=== PATIENT | female | born 1980 | race Caucasian/White ===

== ENCOUNTER 2016-09-01 08:13 | Emergency (ER) | payer BC, MEDICAID ==
[~2016-09-01] VITALS: Ht 154.9 cm; Wt 47.6 kg
[~2016-09-01 08:13] MED LIST: METH-171 PO; NAPR-607 PO; NOR10T PO
[2016-09-01 08:37] VITALS: BP 125/55
== END 2016-09-01 13:33 | disposition left against medical advice (07) ==
LOC: ER 08:13
DX: M54.9 Dorsalgia, unspecified (principal); Z53.21 Procedure and treatment not carried out due to patient leaving prior to being seen by health care provider

== ENCOUNTER 2019-02-27 18:39 | Emergency (ER) | payer BC, MEDICAID ==
[~2019-02-27] VITALS: Ht 154.9 cm; Wt 49.9 kg
[~2019-02-27 18:39] MED LIST changes: -METH-171 PO; +METH-532 PO; -NAPR-607 PO; +NAPR500T31 PO
[2019-02-27 19:20] VITALS: BP 130/76
[2019-02-27 19:35] LABS: Basophils # (auto) 0.1 uL; Basophils % (auto) 0.6 % (0.0-2.0); Eosinophils # (auto) 0.2 uL; Hematocrit 38.5 % (36.0-46.0); Hemoglobin 13.3 g/dL (12.2-16.2); Lymphocytes # (auto) 2.6 uL; Lymphocytes % (auto) 31.7 % (10.0-50.0); Mean Corpuscular Hemoglobin 33.3 pg (28.0-32.0); Mean Corpuscular Hgb Conc. 34.6 g/dL (32.0-36.0); Mean Corpuscular Volume 96.2 fL (80.0-100.0); Monocytes # (auto) 0.8 uL; Monocytes % (auto) 10.1 % (0.0-12.0); Neutrophils # (auto) 4.5 uL; Neutrophils % (auto) 55.6 % (37.0-80.0); Platelet Count (auto) 263 10^3/uL (140-450); Red Cell Distribution Width 12.8 % (11.8-14.3); White Blood Cell 8.1 10^3/uL (4.4-10.8)
[2019-02-27 19:39] LABS: Alanine Aminotransferase 31 U/L (13-56); Albumin 3.8 g/dL (3.4-5.0); Anion Gap 5 (5-15); Blood Urea Nitrogen 16 mg/dL (7-18); Calcium 8.3 mg/dL (8.5-10.1); Carbon Dioxide 28 mmol/L (21-32); Chloride 106 mmol/L (98-107); Glucose 53 mg/dL (74-106); Potassium 3.5 mmol/L (3.5-5.1); Sodium 139 mmol/L (136-145)
[2019-02-27 19:43] LABS: Urine WBC None Seen /hpf (0 - 5)
[2019-02-27 19:44] LABS: Alkaline Phosphatase 63 U/L (45-117); Aspartate Aminotransferase 29 U/L (15-37); Bilirubin, Total 0.3 mg/dL (0.2-1.0); GFR African American 99 mL/min; GFR Non-African American 82 mL/min
[2019-02-27 19:56] LABS: Urine Bacteria NONE SEEN /hpf (None Seen); Urine Blood Negative /uL (Negative); Urine Specific Gravity 1.005 (1.001-1.035)
[2019-02-27] MEDS ORDERED: SODIUM CHLORIDE 0.9% 1,000 ML IVB ONE (20:10)
[2019-02-27 20:21] LABS: Alcohol, Urine < 3.0 mg/dL (0-5); Amphetamine Screen, Urine NEGATIVE (NEGATIVE); Barbiturate Scree,Urine NEGATIVE (NEGATIVE); Benzodiazephine Screen, Urine NEGATIVE (NEGATIVE); Cannabinoid Screen, Urine POSITIVE (NEGATIVE); Cocaine Screen, Urine NEGATIVE (NEGATIVE); Opiate Scree,Urine NEGATIVE (NEGATIVE); Phencyclidine Screen, Urine NEGATIVE (NEGATIVE)
[2019-02-27] MEDS ORDERED: ACETAMINOPHEN 325 MG TAB PO ONE ×2 (20:45)
[2019-02-27 20:51] LABS: INR 1.06 (0.9-1.15); Partial Thromboplastin Time 30.2 sec (23.64-32.05)
== END 2019-02-27 21:40 | disposition left against medical advice (07) ==
LOC: EDBD 18:39 → ER 18:45
DX: E16.2 Hypoglycemia, unspecified (principal); R56.9 Unspecified convulsions; F12.10 Cannabis abuse, uncomplicated
CPT/HCPCS: 36415; 70450; 80053; 80307; 80320; 81001; 82962; 84484; 85025; 85610; 85730; 94761; 99284; J7030

== ENCOUNTER 2019-04-03 07:05 | Emergency (ER) | payer MEDICAID ==
[~2019-04-03] VITALS: Ht 154.9 cm; Wt 49.0 kg
[2019-04-03 07:57] LABS: Basophils # (auto) 0.1 uL; Basophils % (auto) 0.6 % (0.0-2.0); Eosinophils # (auto) 0.2 uL; Eosinophils % (auto) 2.4 % (0.0-7.0); Lymphocytes # (auto) 1.7 uL; Lymphocytes % (auto) 18.2 % (10.0-50.0); Mean Corpuscular Hemoglobin 32.2 pg (28.0-32.0); Mean Corpuscular Hgb Conc. 33.3 g/dL (32.0-36.0); Mean Corpuscular Volume 96.6 fL (80.0-100.0); Monocytes # (auto) 0.6 uL; Monocytes % (auto) 6.1 % (0.0-12.0); Neutrophils # (auto) 6.8 uL; Neutrophils % (auto) 72.7 % (37.0-80.0); Platelet Count (auto) 296 10^3/uL (140-450); Red Blood Cells 4.66 10^6/uL (4.0-5.20); Red Cell Distribution Width 13.3 % (11.8-14.3); White Blood Cell 9.3 10^3/uL (4.4-10.8)
[2019-04-03 08:19] LABS: BUN/Creatinine Ratio 20.7; Calcium 8.9 mg/dL (8.5-10.1); Potassium 4.4 mmol/L (3.5-5.1)
[2019-04-03 08:22] LABS: Bilirubin, Total 0.6 mg/dL (0.2-1.0); Total Protein 7.5 g/dL (6.4-8.2)
[2019-04-03 08:25] LABS: Urine Bacteria NONE SEEN /hpf (None Seen); Urine Blood Negative /uL (Negative); Urine WBC 1 /hpf (0 - 5)
[2019-04-03 11:00] VITALS: BP 120/52
== END 2019-04-03 11:18 | disposition home or self-care (01) ==
LOC: ER 07:05
DX: S00.93XA Contusion of unspecified part of head, initial encounter (principal); F41.9 Anxiety disorder, unspecified; H53.8 Other visual disturbances; X58.XXXA Exposure to other specified factors, initial encounter; Y93.89 Activity, other specified; Y92.89 Other specified places as the place of occurrence of the external cause; Y99.8 Other external cause status
CPT/HCPCS: 36415; 70450; 70486; 74176; 80053; 81001; 85025

== ENCOUNTER 2019-05-29 08:31 | Emergency (ER) | payer MEDICAID ==
[~2019-05-29] VITALS: Ht 154.9 cm; Wt 49.9 kg
[2019-05-29 09:21] VITALS: BP 127/48
[2019-05-29 09:36] LABS: Basophils # (auto) 0 uL; Basophils % (auto) 0.2 % (0.0-2.0); Eosinophils # (auto) 0 uL; Eosinophils % (auto) 0.2 % (0.0-7.0); Hematocrit 46.5 % (36.0-46.0); Hemoglobin 15.6 g/dL (12.2-16.2); Lymphocytes # (auto) 1.4 uL; Lymphocytes % (auto) 13.9 % (10.0-50.0); Mean Corpuscular Hemoglobin 32.2 pg (28.0-32.0); Mean Corpuscular Hgb Conc. 33.6 g/dL (32.0-36.0); Mean Corpuscular Volume 95.8 fL (80.0-100.0); Monocytes # (auto) 0.7 uL; Monocytes % (auto) 6.7 % (0.0-12.0); Neutrophils # (auto) 8.1 uL; Platelet Count (auto) 390 10^3/uL (140-450); Red Blood Cells 4.86 10^6/uL (4.0-5.20); Red Cell Distribution Width 13.2 % (11.8-14.3); White Blood Cell 10.3 10^3/uL (4.4-10.8)
[2019-05-29 09:49] LABS: Albumin 4.2 g/dL (3.4-5.0); Calcium 9.6 mg/dL (8.5-10.1); Potassium 3.7 mmol/L (3.5-5.1)
[2019-05-29 09:52] LABS: Bilirubin, Total 0.3 mg/dL (0.2-1.0); Total Protein 8.2 g/dL (6.4-8.2)
[2019-05-29 10:13] LABS: Urine Bacteria FEW /hpf (None Seen); Urine Blood Negative /uL (Negative); Urine Hyaline Cast FEW /lpf (0 - 2); Urine Mucus FEW (None Seen); Urine Specific Gravity 1.027 (1.001-1.035); Urine WBC 18 /hpf (0 - 5)
[2019-05-29] MEDS: KETOROLAC TROMETH 60MG/2ML VIAL IM ONE (11:18)
[2019-05-29] MEDS: CARISOPRODOL 350 MG TAB PO ONE (11:18)
== END 2019-05-29 11:58 | disposition home or self-care (01) ==
LOC: ER 08:31
DX: G40.909 Epilepsy, unspecified, not intractable, without status epilepticus (principal); N39.0 Urinary tract infection, site not specified; M54.5 Low back pain; Z90.49 Acquired absence of other specified parts of digestive tract
CPT/HCPCS: 36415; 70450; 72100; 80053; 81001; 81025; 85025; 96372; 99284; J1885

== ENCOUNTER → 2022-02-08 | Emergency (ER) | payer MEDICAID ==
[~2022-02-08] VITALS: Ht 154.9 cm; Wt 60.0 kg
[~2022-02-08] MED LIST changes: +ACET-1156 PO; +IOHEXOL 300 MG/ML 100ML BOTTLE IJ ONE; +KETO10TA PO; +KETOROLAC TROMETH 30 MG/ML 1ML VIAL IV ONE; +LACTATED RINGER'S 1,000 ML IV ONE; +MAA30LQ GT; +METO-281 PO; +METOCLOPRAMIDE HCL 5MG/ml INJ 2ml VIAL IV ONE; +MORPHINE SULFATE 4 MG/ML SYR/VIAL IV ONE; +diphenhdrAMINE HCL 50 MG/1 ML VL IM ONE
[2022-02-08 06:49] LABS: Basophils # (auto) 0 10 ^3/uL (0-0.2); Basophils % (auto) 0.3 % (0.0-2.0); Eosinophils # (auto) 0 10 ^3/uL (0-0.8); Eosinophils % (auto) 0.1 % (0.0-7.0); Hematocrit 41.6 % (36.0-46.0); Hemoglobin 13.8 g/dL (12.2-16.2); Lymphocytes # (auto) 1.5 10 ^3/uL (0.4-5.4); Lymphocytes % (auto) 13.6 % (10.0-50.0); Mean Corpuscular Hemoglobin 32.4 pg (28.0-32.0); Mean Corpuscular Hgb Conc. 33.2 g/dL (32.0-36.0); Mean Corpuscular Volume 97.5 fL (80.0-100.0); Monocytes # (auto) 0.5 10 ^3/uL (0-1.3); Monocytes % (auto) 4.2 % (0.0-12.0); Neutrophils # (auto) 9.2 10 ^3/uL (1.6-8.6); Neutrophils % (auto) 81.8 % (37.0-80.0); Red Blood Cells 4.26 10^6/uL (4.0-5.20); Red Cell Distribution Width 13.2 % (11.8-14.3); White Blood Cell 11.2 10^3/uL (4.4-10.8)
[2022-02-08 07:04] LABS: Albumin 4.1 g/dL (3.4-5.0); Calcium 9.2 mg/dL (8.5-10.1); Magnesium 2.2 mg/dL (1.6-2.6); Potassium 3.6 mmol/L (3.5-5.1)
[2022-02-08 07:08] LABS: BUN/Creatinine Ratio 26.2; Bilirubin, Total 0.5 mg/dL (0.2-1.0); Total Protein 7.4 g/dL (6.4-8.2)
[2022-02-08 11:43] LABS: Urine WBC None Seen /hpf (0 - 5)
[2022-02-08 11:49] VITALS: BP 106/55
[2022-02-08 11:53] LABS: Urine Amorphous Crystal FEW /hpf (None Seen); Urine Bacteria FEW /hpf (None Seen); Urine Blood Negative /uL (Negative)
[2022-02-08 12:00] LABS: Urine Specific Gravity > 1.050 (1.001-1.035)
== END | disposition home or self-care (01) ==
LOC: EDUNIT# 05:23 → EDBD 05:27 → ER 05:30
DX: K29.70 Gastritis, unspecified, without bleeding (principal); Z90.49 Acquired absence of other specified parts of digestive tract; Z79.899 Other long term (current) drug therapy; Z88.5 Allergy status to narcotic agent; Z88.8 Allergy status to other drugs, medicaments and biological substances
CPT/HCPCS: 36415; 71045; 74177; 80053; 81001; 81025; 83605; 83735; 84702; 85025; 93005; 96361; 96372; 96374; 96375; 99285; J1200; J1885; J2270; J2765; Q9967

== ENCOUNTER 2024-02-05 08:03 | Emergency (ER) | payer MEDICAID ==
[~2024-02-05] VITALS: Ht 154.9 cm; Wt 47.3 kg
[~2024-02-05 08:03] MED LIST changes: -ACET-1156 PO; +ACET-1881 PO; -IOHEXOL 300 MG/ML 100ML BOTTLE IJ ONE; -KETOROLAC TROMETH 30 MG/ML 1ML VIAL IV ONE; -LACTATED RINGER'S 1,000 ML IV ONE; -METOCLOPRAMIDE HCL 5MG/ml INJ 2ml VIAL IV ONE; -MORPHINE SULFATE 4 MG/ML SYR/VIAL IV ONE; +NAPR-746 PO; -NAPR500T31 PO; -diphenhdrAMINE HCL 50 MG/1 ML VL IM ONE
[2024-02-05 08:32] LABS: Eosinophils # (auto) 0 10 ^3/uL (0-0.8); Eosinophils % (auto) 0.4 % (0.0-7.0); Hemoglobin 15.8 g/dL (12.2-16.2); Monocytes # (auto) 0.5 10 ^3/uL (0-1.3)
[2024-02-05 08:35] LABS: Basophils # (auto) 0 10 ^3/uL (0-0.2); Basophils % (auto) 0.5 % (0.0-2.0); Hematocrit 44.4 % (36.0-46.0); Lymphocytes % (auto) 9.5 % (10.0-50.0); Mean Corpuscular Hemoglobin 36.9 pg (28.0-32.0); Mean Corpuscular Hgb Conc. 35.6 g/dL (32.0-36.0); Mean Corpuscular Volume 103.8 fL (80.0-100.0); Monocytes % (auto) 4.5 % (0.0-12.0); Neutrophils # (auto) 8.5 10 ^3/uL (1.6-8.6); Neutrophils % (auto) 85.1 % (37.0-80.0); Platelet Count (auto) 407 10^3/uL (140-450); Red Blood Cells 4.28 10^6/uL (4.0-5.20); Red Cell Distribution Width 13.8 % (11.8-14.3)
[2024-02-05 08:52] LABS: Alanine Aminotransferase 22 U/L (7-40); Albumin 5.4 g/dL (3.2-4.8); Alkaline Phosphatase 69 U/L (46-116); Anion Gap 7 (5-15); Aspartate Aminotransferase 13 U/L (13-40); BUN/Creatinine Ratio 13.6 (10.0-20.0); Blood Urea Nitrogen 12 mg/dL (9-23); Calcium 11.1 mg/dL (8.7-10.4); Carbon Dioxide 27 mmol/L (20-30); Chloride 102 mmol/L (98-107); Glucose 139 mg/dL (74-106); Potassium 3.8 mmol/L (3.5-5.1); Sodium 136 mmol/L (136-145)
[2024-02-05 08:53] LABS: Bilirubin, Total 0.7 mg/dL (0.2-1.0); Total Protein 8.3 g/dL (5.7-8.2)
[2024-02-05 09:12] VITALS: BP 116/59; RESP 17; TEMP 99.2; O2SAT 100
[2024-02-05] MEDS ORDERED: PANTOPRAZOLE 40mg/50ML NS AE 50 ML IV ONE (10:45)
[2024-02-05] MEDS ORDERED: HYDROmorphone HCL 2 MG/ML VL/or syr IV ONE (10:45)
[2024-02-05] MEDS ORDERED: PANTOPRAZOLE 80 MG in SODIUM CHL 0.9% 100 ML IV ONE (10:45)
[2024-02-05] MEDS ORDERED: ONDANSETRON HCL 4 MG/2 ML VIAL IV ONE (10:45)
[2024-02-05] MEDS ORDERED: SODIUM CHLORIDE 0.9% 1,000 ML IV ONE (10:45)
[2024-02-05 10:57] VITALS: PULSE 44
[2024-02-05] MEDS ORDERED: TRAM50TA2 PO (23:35)
[2024-02-05] MEDS ORDERED: PANT40TA2 PO (23:35)
== END 2024-02-05 10:15 | disposition left against medical advice (07) ==
LOC: ER 08:03
DX: K29.70 Gastritis, unspecified, without bleeding (principal); K27.9 Peptic ulcer, site unspecified, unspecified as acute or chronic, without hemorrhage or perforation; Z88.6 Allergy status to analgesic agent; Z90.49 Acquired absence of other specified parts of digestive tract
CPT/HCPCS: 36415; 80053; 82941; 83970; 85025; 93005; 99284; J1170; J2405; J2470

== ENCOUNTER 2024-02-05 10:15 | Inpatient (IN) | payer MEDICAID ==
[~2024-02-05] VITALS: Ht 154.9 cm; Wt 53.7 kg
[2024-02-05 11:45] VITALS: PULSE 45; RESP 16; O2SAT 100
[2024-02-05] MEDS: SODIUM CHLORIDE 0.9% 1,000 ML IV ONE ×2 (12:20→22:00)
[2024-02-05] MEDS: HYDROmorphone HCL 2 MG/ML VL/or syr IV ONE ×2 (12:21→13:49)
[2024-02-05] MEDS: IOHEXOL 300 MG/ML 100ML BOTTLE IJ ONE (12:35)
[2024-02-05] MEDS: ONDANSETRON HCL 4 MG/2 ML VIAL IV ONE (12:37)
[2024-02-05 12:52] LABS: Basophils # (auto) 0 10 ^3/uL (0-0.2); Basophils % (auto) 0.1 % (0.0-2.0); Eosinophils # (auto) 0 10 ^3/uL (0-0.8); Lymphocytes # (auto) 0.6 10 ^3/uL (0.4-5.4); Monocytes # (auto) 0.2 10 ^3/uL (0-1.3)
[2024-02-05 12:53] LABS: Hematocrit 39.2 % (36.0-46.0); Hemoglobin 13.6 g/dL (12.2-16.2); Lymphocytes % (auto) 7.7 % (10.0-50.0); Mean Corpuscular Hemoglobin 36.1 pg (28.0-32.0); Mean Corpuscular Hgb Conc. 34.7 g/dL (32.0-36.0); Monocytes % (auto) 2.5 % (0.0-12.0); Neutrophils # (auto) 6.8 10 ^3/uL (1.6-8.6); Neutrophils % (auto) 89.7 % (37.0-80.0); Platelet Count (auto) 369 10^3/uL (140-450); Red Blood Cells 3.77 10^6/uL (4.0-5.20); Red Cell Distribution Width 13.5 % (11.8-14.3); White Blood Cell 7.6 10^3/uL (4.4-10.8)
[2024-02-05] MEDS: PANTOPRAZOLE 80 MG in SODIUM CHL 0.9% 100 ML IV ONE (12:59)
[2024-02-05 13:13] LABS: INR 1.28 (0.9-1.15); Partial Thromboplastin Time 27.9 SEC (24.5-34.5); Prothrombin Time 13.3 sec (9.3-11.8)
[2024-02-05 13:28] LABS: Alanine Aminotransferase 19 U/L (7-40); Albumin 4.5 g/dL (3.2-4.8); Alkaline Phosphatase 55 U/L (46-116); Anion Gap 6 (5-15); Aspartate Aminotransferase 11 U/L (13-40); BUN/Creatinine Ratio 17.1 (10.0-20.0); Bilirubin, Total 0.6 mg/dL (0.2-1.0); Blood Urea Nitrogen 13 mg/dL (9-23); Calcium 9.5 mg/dL (8.7-10.4); Carbon Dioxide 26 mmol/L (20-30); Chloride 103 mmol/L (98-107); Glucose 119 mg/dL (74-106); Potassium 3.6 mmol/L (3.5-5.1); Sodium 135 mmol/L (136-145); Total Protein 6.7 g/dL (5.7-8.2)
[2024-02-05 13:58] LABS: Lipase 31 U/L (12-53)
[2024-02-05] MEDS: PANTOPRAZOLE 40mg/50ML NS AE 50 ML IV ONE (14:30)
[2024-02-05] MEDS: fentaNYL CITRATE 100 MCG/2 ML VL IV ONE (16:11)
[2024-02-05 16:58] LABS: Urine Bacteria MOD /hpf (None Seen); Urine Blood Negative /uL (Negative); Urine Clarity Clear (Clear); Urine Color Yellow (Yellow); Urine Protein, UAD TRACE (Negative); Urine Urobilinogen Normal (Negative); Urine WBC 1 /hpf (0 - 5)
[2024-02-05 17:27] LABS: Urine Specific Gravity > 1.050 (1.001-1.035)
[2024-02-05] MEDS ORDERED: PANTOPRAZOLE 40mg/50ML NS AE 50 ML IV SCH (18:15)
[2024-02-05] MEDS ORDERED: fentaNYL CITRATE 100 MCG/2 ML VL IV PRN (18:15)
[2024-02-05] MEDS ORDERED: LACTATED RINGER'S 1,000 ML IV ONE (18:15)
[2024-02-05] MEDS ORDERED: ACETAMINOPHEN 325 MG TAB PO PRN (18:15)
[2024-02-05] MEDS ORDERED: DOCUSATE SOD 100 MG CAP PO PRN (18:15)
[2024-02-05] MEDS: PANTOPRAZOLE 40mg/50ML NS AE 50 ML IV SCH (18:21)
[2024-02-05] MEDS ORDERED: ATROPINE SULF 1 MG/10ml SYR IV PRN (18:30)
[2024-02-05] MEDS ORDERED: FLUMAZENIL 0.1 MG/ML INJ 10ML MDV IV PRN (18:30)
[2024-02-05] MEDS: fentaNYL CITRATE 100 MCG/2 ML VL IV PRN ×2 (18:41→22:20)
[2024-02-05] MEDS ORDERED: HYDROmorphone HCL 2 MG/ML VL/or syr IV PRN (21:30)
[2024-02-05] MEDS: SODIUM CHLOR 0.9% PF (SALINE LOCK) 10ML VIAL/SYR IV SCH (22:19)
[2024-02-05] MEDS ORDERED: TRAM50TA2 PO (23:35)
[2024-02-05] MEDS ORDERED: PANT40TA2 PO (23:35)
[2024-02-05 23:54] VITALS: BP 117/76; PULSE 59; RESP 18; TEMP 98; O2SAT 98
[2024-02-06] MEDS: HYDROcodone-ACET 5/325MG TAB PO PRN (06:52)
[2024-02-06 07:41] LABS: Alanine Aminotransferase 13 U/L (7-40); Albumin 4.3 g/dL (3.2-4.8); Alkaline Phosphatase 49 U/L (46-116); Anion Gap 8 (5-15); Aspartate Aminotransferase 11 U/L (13-40); BUN/Creatinine Ratio 12.9 (10.0-20.0); Blood Urea Nitrogen 9 mg/dL (9-23); Calcium 9.2 mg/dL (8.7-10.4); Carbon Dioxide 24 mmol/L (20-30); Chloride 107 mmol/L (98-107); Glucose 117 mg/dL (74-106); Potassium 3.8 mmol/L (3.5-5.1); Sodium 139 mmol/L (136-145)
[2024-02-06 07:42] LABS: Bilirubin, Total 0.8 mg/dL (0.2-1.0); Total Protein 6.4 g/dL (5.7-8.2)
[2024-02-06 07:48] LABS: Basophils # (auto) 0 10 ^3/uL (0-0.2); Basophils % (auto) 0.1 % (0.0-2.0); Eosinophils # (auto) 0 10 ^3/uL (0-0.8); Mean Corpuscular Hemoglobin 36.4 pg (28.0-32.0); Monocytes # (auto) 0.7 10 ^3/uL (0-1.3); Neutrophils # (auto) 6.5 10 ^3/uL (1.6-8.6)
[2024-02-06 07:51] LABS: Eosinophils % (auto) 0.4 % (0.0-7.0); Hematocrit 38.9 % (36.0-46.0); Hemoglobin 13.4 g/dL (12.2-16.2); Lymphocytes # (auto) 1.4 10 ^3/uL (0.4-5.4); Lymphocytes % (auto) 16.5 % (10.0-50.0); Mean Corpuscular Hgb Conc. 34.6 g/dL (32.0-36.0); Mean Corpuscular Volume 105.2 fL (80.0-100.0); Monocytes % (auto) 8.1 % (0.0-12.0); Neutrophils % (auto) 74.9 % (37.0-80.0); Platelet Count (auto) 336 10^3/uL (140-450); Red Cell Distribution Width 13.7 % (11.8-14.3); White Blood Cell 8.7 10^3/uL (4.4-10.8)
[2024-02-06 09:00] VITALS: BP 104/60; PULSE 100; RESP 17; TEMP 98.6; O2SAT 100
[2024-02-06 09:13] LABS: Anisocytosis Slight; Macrocytosis Slight; Platelet Estimate Adequate
[2024-02-06] MEDS: ONDANSETRON HCL 4 MG/2 ML VIAL IV PRN (09:40)
[2024-02-06 10:00] LABS: Triglycerides 85 mg/dL (< 150)
[2024-02-06 10:01] LABS: Blood Alcohol < 3.0 mg/dL (<10); LDL Cholesterol 75 mg/dL (< 100)
[2024-02-06 10:02] LABS: Cholesterol 146 mg/dL (< 200); HDL Cholesterol 52 mg/dL (40-59)
[2024-02-06] MEDS ORDERED: MORPHINE SULFATE INJ 2 MG/ml SYRG IV PRN (12:15)
[2024-02-06] MEDS: MORPHINE SULFATE INJ 2 MG/ml SYRG IV PRN (12:53)
[2024-02-06 13:00] VITALS: BP 110/79; PULSE 52; RESP 17; TEMP 98.4; O2SAT 98
[2024-02-06 13:38] LABS: Amphetamine Screen, Urine Neg (NEGATIVE); Barbiturate Scree,Urine Neg (NEGATIVE); Benzodiazephine Screen, Urine Neg (NEGATIVE); Cocaine Screen, Urine Neg (NEGATIVE); Opiate Scree,Urine Neg (NEGATIVE); Phencyclidine Screen, Urine Neg (NEGATIVE)
[2024-02-06 13:39] LABS: Cannabinoid Screen, Urine Pos (NEGATIVE)
[2024-02-06] MEDS: HYDROcodone-ACET 10/325MG TAB PO PRN (14:27)
[2024-02-06 17:00] VITALS: BP 110/72; PULSE 48; RESP 17; TEMP 98.4; O2SAT 97
[2024-02-06 18:22] VITALS: BP 116/72; PULSE 48; RESP 18
== END 2024-02-06 19:00 | disposition left against medical advice (07) | DRG 241 ==
LOC: EDBD 10:15 → EDUNIT# 10:15 → ER 10:15 → OVERFLOW 18:18 → EAST 23:18
PROVIDERS: ADMIT Internal Medicine; ATTEND Internal Medicine
DX: K29.71 Gastritis, unspecified, with bleeding (principal); E44.0 Moderate protein-calorie malnutrition; K27.4 Chronic or unspecified peptic ulcer, site unspecified, with hemorrhage; Z53.29 Procedure and treatment not carried out because of patient's decision for other reasons; Z82.49 Family history of ischemic heart disease and other diseases of the circulatory system; Z83.3 Family history of diabetes mellitus; Z90.49 Acquired absence of other specified parts of digestive tract; Z68.22 Body mass index [BMI] 22.0-22.9, adult
CPT/HCPCS: 36415; 74177; 80053; 80061; 80307; 80320; 81001; 82941; 83690; 84484; 84702; 85025; 85610; 85730; 93005; 96361; 96365; 96375; 96376; G0378; J2405; J2470